=== PATIENT | male | born 1960 | race Caucasian/White ===

== ENCOUNTER 2017-10-11 10:25 | Day surgery (SDC) | payer MEDICAID, SELFPAY ==
[2017-10-11] VITALS (10 sets, daily range): BP systolic 147–175; BP diastolic 80–112; PULSE 88–115; RESP 16–22; TEMP 35.7–37; O2SAT 94–98; BMI 43.5; BMI 43.4
--- NOTE | 2017-10-11 10:41 | EKG12_ITS ---
Test Reason : PRE-OP Blood Pressure : / mmHG Vent. Rate : 091 BPM Atrial Rate : 091 BPM P-R Int : 142 ms QRS Dur : 080 ms QT Int : 348 ms P-R-T Axes : 072 048 017 degrees QTc Int : 428 ms Normal sinus rhythm Normal ECG Confirmed by DEMETRIO MEIER, ROXANN ([id number]), supervising editor trailer KARINA TORRES ([id number] on 10/19/2017 12:15:54 PM Referred By: Mike Bruno Confirmed By:ROXANN ATKINSON MD
[2017-10-11 11:21] LABS: Bedside Glucose 95 mg/dL (70-110)
[2017-10-11 11:31] LABS: Anion Gap 7 (5-15); BUN 15 mg/dL (7-18); BUN/Creat Ratio 13.5 RATIO (10-20); Calcium,Total 9.2 mg/dL (8.5-10.1); Chloride 105 mmol/L (98-107); Creatinine, Serum 1.11 mg/dL (0.70-1.30); EST Glomerular Filtration Rate 73 mL/min (>60); Est Glom Filt Rate - Afr Amer 88 mL/min (>60); Estimated Creatinine Clearance 76.73 ml/min; Glucose 88 mg/dL (70-110); Potassium 4.4 mmol/L (3.5-5.1); Sodium Level 140 mmol/L (136-145)
[2017-10-11 11:39] LABS: Hemoglobin A1c 5.6 % (4.2-6.3)
[2017-10-11] MEDS: Cefazolin 3 GM in Syringe 1 EACH IV (12:52)
[2017-10-11 16:36] LABS: Bedside Glucose 151 mg/dL (70-110)
[2017-10-11] MEDS: Divalproex Sodium 250 MG Tablet 500 MG PO (19:02)
[2017-10-11] MEDS: HYDROcodone Bitartrate/Apap 5/325 Tablet PO (20:39)
[2017-10-11] MEDS: Divalproex Sodium 250 MG Tablet PO (22:49)
[2017-10-11] MEDS: Lactated Ringers 1,000 ML 100 ML IV (22:50)
[2017-10-11 23:06] LABS: Bedside Glucose 160 mg/dL (70-110)
[2017-10-12 00:37] VITALS: RESP 18; O2SAT 96
[2017-10-12] MEDS: HYDROcodone Bitartrate/Apap 5/325 Tablet PO ×2 (02:36→09:07)
[2017-10-12 03:45] VITALS: BP 118/55; PULSE 71; RESP 18; TEMP 36.9; O2SAT 96
[2017-10-12 08:47] VITALS: BP 128/83; PULSE 97; RESP 18; TEMP 36.8; O2SAT 96
[2017-10-12] MEDS: Divalproex Sodium 250 MG Tablet 500 MG PO (08:52)
[2017-10-12] MEDS: Aspirin E.C. 81 MG Tablet PO (08:53)
[2017-10-12] MEDS: Meloxicam 15 MG Tablet PO (08:53)
[2017-10-12] MEDS: Loratadine 10 MG Tablet PO (08:53)
[2017-10-12] MEDS: clonazePAM 0.5 MG Tablet PO (08:56)
== END 2017-10-12 11:44 | disposition home or self-care (01) ==
LOC: SDC 10:26 → AC 10:28 → SDC 15:44 → MS3 15:46
PROVIDERS: Anesthesiology; Family Provider Family Medicine; PCP Family Medicine; Visit Provider Orthopaedic Surgery
PROC: (CPT 29827; principal; 2017-10-11 12:10)
DX: S46.011A Strain of muscle(s) and tendon(s) of the rotator cuff of right shoulder, initial encounter (principal); M75.41 Impingement syndrome of right shoulder; W19.XXXA Unspecified fall, initial encounter; Y93.9 Activity, unspecified; Y92.9 Unspecified place or not applicable; Y99.9 Unspecified external cause status; M19.011 Primary osteoarthritis, right shoulder; E11.9 Type 2 diabetes mellitus without complications; G47.30 Sleep apnea, unspecified; F31.9 Bipolar disorder, unspecified; E66.01 Morbid (severe) obesity due to excess calories; Z68.42 Body mass index [BMI] 45.0-49.9, adult
CPT/HCPCS: 29826; 29827; 36415; 80048; 82962; 83036; 93005; J7120; C1713; J2405